=== PATIENT | male | born 1960 | race Caucasian/White ===

== ENCOUNTER 2022-01-02 19:17 | Emergency (ER) | payer OTHER, MEDICAID, SELFPAY ==
[2022-01-02 19:19] VITALS: BP 101/60; PULSE 56; RESP 18; TEMP 36.1; O2SAT 100; BMI 22.3
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
--- NOTE | 2022-01-02 22:20 | RAD_ITS ---
INDICATION: Injury/Pain EXAMINATION/TECHNIQUE: X-RAY - RIGHT XR Forearm 2 Views 2 VIEWS COMPARISON: None. FINDINGS: SOFT TISSUES: No soft tissue swelling or gas. No radiopaque foreign body. BONES/JOINTS: No acute fracture or subluxation.. Normal alignment. Preservation of the joint space.. No sclerotic or destructive changes observed. RAD/Forearm 2 Views IMPRESSION: No acute fracture or dislocation. Electronically Signed: Abner Irby MD at 23:28 EDT ,
[2022-01-02 22:43] VITALS: BP 130/74; PULSE 80; RESP 17; TEMP 36.6; O2SAT 98
== END 2022-01-02 22:46 | disposition home or self-care (01) ==
PROVIDERS: Emergency Provider Emergency Medicine; PCP Family Medicine; Visit Provider Emergency Medicine
DX: S51.811A Laceration without foreign body of right forearm, initial encounter (principal); X58.XXXA Exposure to other specified factors, initial encounter
CPT/HCPCS: 73090; 99282

== ENCOUNTER → 2022-01-19 | Outpatient (CLI) | payer MEDICAID, SELFPAY ==
[2022-01-19 12:19] LABS: Absolute Lymphocyte Count 1.63 X10^3/uL (0.83-4.51); Absolute Neutrophil Count 2.1 X10^3/uL (2.0-7.7); Basophil# 0.08 X10^3/uL; Basophil% 1.8 % (0-1); Eosinophil# 0.29 X10^3/uL; Eosinophils% 6.3 % (0-5); Hematocrit 43.3 % (40-54); Hemoglobin 14.1 g/dL (13.0-16.5); Lymphocyte # 1.63 X10^3/ul (0.83-4.51); Lymphocyte % 35.7 % (19-41); Mean Corp Hgb Conc 32.6 g/dL (32-36); Mean Corpuscular Hgb 30.6 pg (27.0-32.0); Mean Corpuscular Volume 93.9 fL (80-94); Mean Platelet Vol. 11.9 fl (6.2-12.0); Monocyte% 10.9 % (0-10); NRBC Flagged by Analyzer 0 % (0-5); Neutrophil # 2.06 X10^3/uL (2.7-7.7); Neutrophil % 45.1 % (47-70); Platelet Count 239 K/mm3 (150-450); RBC Distribution Width CV 12.9 % (11.6-14.6); RBC Distribution Width SD 44.5 fl (35.1-43.9); Red Blood Count 4.61 M/mm3 (4.6-6.2); White Blood Count 4.6 K/mm3 (4.4-11.0)
[2022-01-19 12:41] LABS: Vitamin B12 303 pg/mL (211-911)
[2022-01-19 13:37] LABS: ALB/GLOB Ratio 1.1 RATIO (0.9-2.4); AST(SGOT) 20 U/L (15-37); Alanine Aminotransfer ALT/SGPT 30 U/L (16-61); Albumin, Serum 3.9 g/dL (3.2-5.0); Alkaline Phosphatase 74 U/L (45-117); Anion Gap 9 (5-15); BUN 17 mg/dL (7-18); BUN/Creat Ratio 21.2 RATIO (10-20); Calcium,Total 9.2 mg/dL (8.5-10.1); Chloride 104 mmol/L (98-107); Cholesterol 148 mg/dL (200); EST Glomerular Filtration Rate 104 mL/min (>60); Est Glom Filt Rate - Afr Amer 126 mL/min (>60); Globulin 3.4 g/dL (2.2-4.2); Glucose 95 mg/dL (74-106); High Density Lipoprotein 47 mg/dL; PSA,Total - Annual Screen 0.53 ng/mL (0.00-4.00); Potassium 3.5 mmol/L (3.5-5.1); Protein, Total 7.3 g/dL (6.4-8.2); Sodium Level 139 mmol/L (136-145); Triglycerides 52 mg/dL; Very Low Density Lipoprotein 10 mg/dL (5-40)
[2022-01-30 14:08] LABS: Testosterone, Free 4.58 ng/dL (5.00-21.00)
[2022-01-31 17:57] LABS: Testosterone, % Free 1.52 % (1.50-4.20); Testosterone, Total 301 ng/dL (264-916)
== END | disposition home or self-care (01) ==
LOC: BFHLAB 08:53
PROVIDERS: PCP Family Medicine; Visit Provider Family Medicine
DX: Z00.00 Encounter for general adult medical examination without abnormal findings (principal); R53.83 Other fatigue; Z12.5 Encounter for screening for malignant neoplasm of prostate; E29.1 Testicular hypofunction
CPT/HCPCS: 36415; 80053; 80061; 82607; 84153; 84402; 84403; 85025; G0103

== ENCOUNTER 2022-10-25 09:30 | Day surgery (SDC) | payer MEDICAID, SELFPAY ==
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
--- NOTE | 2022-10-25 | LES_PTH ---
PATIENT: TOYIN SABA LOC: [facility] [place] U[place][id number] AGE/SX: 61/M ROOM: RE10/25/[address]: Dr. Tio Crooks MD : 1960 BED: DIS: 10/25/2022 SPEC #: [id number] RECD: 10/25/22 13:50 STATUS: TOM MIKE #: [id number] HINA: 10/25/22 00:[address]: Tio Crooks DEPT: SURGICAL PATHOLOGY RECD BY: Tobin Perkins ENTERED: 10/25/22 14:33 SP TYPE: Lesion OTHR DR: Dr. Toyin Franks, Tissues: Skin of eyelid, NOS Procedures: Frozen Section (charge) Surgery Specimen Level IV HEADER OPERATION: Excision lesion left medial upper eyelid PRE-OP DIAGNOSIS: Lesion left medial upper eyelid at the margin TISSUE SUBMITTED: Left medial upper eyelid FROZEN SECTION DIAGNOSIS Left medial upper eyelid lesion, shave biopsy: Seborrheic keratosis. Case has been reviewed in consultation with Dr. Mead who concurs with the above diagnosis. IDC:RADHA MAGANA:silverio 10/25/22 MICROSCOPIC DIAGNOSIS Left medial upper eyelid lesion, excision: Seborrheic keratosis. SJ: 10/26/2022 COMMENT Case has been reviewed in consultation with Dr. Mead who concurs with the above diagnosis. IDC:RADHA MICROSCOPIC DESCRIPTION Slides are reviewed. GROSS DESCRIPTION Received fresh for frozen section diagnosis labeled with the patient's name is a specimen designated left medial upper eyelid. The specimen consists of one irregular piece of belcher, white skin that measures 0.4 x 0.4 x 0.1 cm. The specimen is totally submitted in one cassette. / SJ: 10/25/22 TC:1 CPT:73760, 64993
[2022-10-25 10:23] VITALS: BP 100/56; PULSE 54; RESP 16; TEMP 36.8; O2SAT 98; BMI 23.0
--- NOTE | 2022-10-25 10:28 | NURSING ---
THIS RN MADE PATIENT AWARE THAT HIS SURGERY START TIME WILL BE DELAYED AND THAT THE SURGEON IS RUNNING BEHIND. PATIENT IS AWARE AND STATES HE HAS NO QUESTIONS OR CONCERNS AT THIS TIME.
[2022-10-25] MEDS: Lactated Ringers 1,000 ML 15 ML IV (10:29)
[2022-10-25] MEDS: Clindamycin 900 MG/50 ML BAG 75 MG IV (13:24)
[2022-10-25] MEDS: Lidocaine 1%/Epi 1:100 (30ml) 30 ML VIAL (14:00)
[2022-10-25] MEDS: Sodium/Calcium/Mag/Potassium 15 ML Bottle (14:00)
[2022-10-25] MEDS: Mupirocin Ointment 22gm Tube 1 APPLIC (14:00)
--- NOTE | 2022-10-25 14:13 | PCM.OPRPT ---
Problems Associated Problem List Diagnoses (1) Neoplasm of skin of eyelid: (2) Seborrheic keratosis: (3) Personal history of skin cancer: (4) Smoker: Report of Operation Date of Procedure: 10/25/22 Pre-Operative Diagnosis: 1. 0.5 cm lesion left medial upper eyelid at the margin. 2. Personal history of skin cancer. 3. Smoker. Post-Operative Diagnosis: 1. 0.5 cm seborrheic keratosis left medial upper eyelid at the margin. 2. Personal history of skin cancer. 3. Smoker. Surgery/Procedure Performed:: Intradermal excision 0.5 cm seborrheic keratosis left medial upper eyelid at the margin. Description of Surgical Findings:: 61 year old male presents for evaluation of an enlarging lesion on his left medial upper eyelid near the lacrimal canalicular punctal opening that has increased in size over the last several months and has developed irregular borders.? He denies having the lesion impact his vision.? He denies fever.? He denies trauma.? He denies any recent infection.? Denies family history of skin cancer.? He has a personal history of basal cell carcinoma.? Patient was informed of the risks and complications of the procedure including alternatives to surgery. These were discussed with the patient personally. Patient voices understanding and wishes to proceed. Some of the risks and complications were included in a form from the [employer]. Potential risks and complications included but not inclusive of bleeding, infection seroma, hematoma, bruising, swelling, loss of sensation to skin, wound breakdown, need for wound care, poor scarring, poor aesthetic outcome, intra operative cardiac or neurologic events, DVT, PE, and reaction to anesthesia. Encouraged patient to stop smoking as it may have deleterious effects on wound healing. Frozen section left medial upper eyelid at the margin - seborrheic keratosis and no carcinoma seen. Surgeon: Tio Crooks MD negotiations director: None Type of Anesthesia: General Anesthesiologist: Keshawn Ferrari MD and Henrique Vogt CRNA Specimen's removed: Lesion left medial upper eyelid at the margin to Pathology as a frozen section. Drains: None. Estimated Blood Loss (mL): 1. Description of Procedure: Patient was taken to OR in supine position and was placed under general anesthesia. The left upper eyelid and periorbital areas were prepped and draped in the usual fashion. SCD's were placed for DVT prophylaxis. Perioperative antibiotics were given intravenously. Using xylocaine with epinephrine, the lesion on the left medial upper eyelid at the margin was infiltrated. After waiting 5 minutes for the anesthetic to take effect, I proceeded with an intradermal excision of this lesion and sent it to Pathology as a frozen section for analysis to rule out carcinoma. Frozen section showed the lesion was a seborrheic keratosis and no carcinoma seen. I irrigated out the left eye because some blood had gotten in her eye with Balanced Salt Solution. Hemostasis was obtained with electrocautery and silver nitrate chemical cauterization. No need for complex eyelid reconstruction at this time. Patient tolerated the procedure well and was sent to PACU in satisfactory condition. Patient will be sent home on antibiotics and pain medication. He will keep his head elevated during the initial postoperative period. Patient will followup in a week for a wound check and for discussion of the pathology report. Grafts/Implants Used: None. Procedure Start Time: 13:41 Procedure Stop Time: 14:04 Complications None. Admit VTE Documentation VTE Present on Admission: No VTE Mechan Device Prophylaxis: SCD's VTE Pharm Prophylaxis ordered?: No Addendum Addendum: Surgery Charges CPT - 60102 ICD-10 - D49.2, L82.1, Z85.828, F17.200
[2022-10-25 14:18] VITALS: BP 100/56; BP 90/55; PULSE 61; RESP 16; TEMP 36.1; O2SAT 97
[2022-10-25 14:30] VITALS: BP 100/56; BP 80/65; PULSE 58; RESP 16; O2SAT 100
--- NOTE | 2022-10-25 14:31 | DCINST_ITS ---
Discharge Instructions Diet Discharge Diet: No restrictions Activity Discharge Activity: May Drive (when not taking narcotic pain medication.), May Shower (in 2 days.) and - (keep head elevated. ) May shower in (days): 2 May resume sexual activity in: No Restrictions Ice area for (Minutes): 5 (as needed for periorbital swelling.) Weight Bearing Status: Weight bearing as tolerated Keep extremity elevated above heart level: - (elevate head.) Dressing / Incision Call your doctor if your incision/area has: Continuous Slow Oozing, Sudden Increased Bleeding, Increased Pain/ Swelling, Increased Redness, Foul Smelling Discharge and Swelling at the incision site Call your doctor if you observe: Fever of 101 or Higher, Coldness, Increased Pain, Shortness of breath, Chest pain, Calf discomfort and Uncontrolled pain Suture Line Care: - (apply antibiotic ointment to left medial upper eyelid wound daily.) Cleanse incision/area with: - (may get surgical wound left medial upper eyelid wet in the shower in 2 days.) Follow Up Care Please Follow Up With: Tio Crooks MD When: one week. call [phone] for appt. Test Results: Test results from this visit will be discussed in further detail at your follow- up appointment, if applicable. Discharge Plan Admission Primary Reason for Your Visit: excision lesion left medial upper eyelid Attending Provider: Tio Crooks Primary Care Provider: Brian Franks Discharge Orders/Prescriptions Prescriptions: New clindamycin HCl [Cleocin HCl] 300 mg capsule 300 mg PO TID Qty: 9 0RF L.acidoph,saliva-B.bif-S.therm [Acidophilus Probiotic Blend] 175 mg capsule 1 cap PO DAILY Qty: 10 0RF oxycodone-acetaminophen [Percocet] 5-325 mg tablet 1 tab PO Q6H PRN (Reason: pain (scale score 7-10)) 3 Days Qty: 12 0RF Rx Instructions: 12 tabs (twelve) Continued multivitamin Tablet 1 tab PO DAILY mecobalamin (vitamin B12) [B12 Active] 1,000 mcg Tablet,Chewable 1,000 mcg PO DAILY Referrals / Follow Up: Brian Franks DO [Primary Care Provider] - Disposition Disposition (needs filled in before D/C Order can be placed): Home, Self Care
[2022-10-25 14:49] VITALS: BP 100/56; BP 85/54; PULSE 58; RESP 16; TEMP 36.3; O2SAT 98
[2022-10-25 15:34] VITALS: BP 100/56; BP 94/50; PULSE 60; RESP 16; TEMP 36.8; O2SAT 99
== END 2022-10-25 15:40 | disposition home or self-care (01) ==
LOC: SDC 09:32 → AC 09:35
PROVIDERS: PCP Family Medicine; Referring Provider Surgery; Visit Provider Surgery
PROC: (CPT 67840; principal; 2022-10-25 10:50)
DX: L82.1 Other seborrheic keratosis (principal); F17.200 Nicotine dependence, unspecified, uncomplicated; Z85.828 Personal history of other malignant neoplasm of skin
CPT/HCPCS: 67840; 00300; 88305; 88331; J7120; J2405

== ENCOUNTER → 2023-10-12 | Outpatient (CLI) | payer MEDICAID, SELFPAY ==
[2023-10-12 12:08] LABS: Absolute Lymphocyte Count 1.81 X10^3/uL (0.83-4.51); Absolute Neutrophil Count 2.2 X10^3/uL (2.0-7.7); Basophil# 0.07 X10^3/uL; Basophil% 1.4 % (0-1); Hematocrit 43.4 % (40-54); Hemoglobin 14.1 g/dL (13.0-16.5); Lymphocyte # 1.81 X10^3/ul (0.83-4.51); Lymphocyte % 36.4 % (19-41); Mean Corp Hgb Conc 32.5 g/dL (32-36); Mean Corpuscular Hgb 30.2 pg (27.0-32.0); Mean Corpuscular Volume 92.9 fL (80-94); Mean Platelet Vol. 12.9 fl (6.2-12.0); Monocyte# 0.59 X10^3/uL; Monocyte% 11.9 % (0-10); NRBC Flagged by Analyzer 0 % (0-5); Neutrophil # 2.19 X10^3/uL (2.7-7.7); Neutrophil % 44.1 % (47-70); Platelet Count 182 K/mm3 (150-450); RBC Distribution Width CV 13.1 % (11.6-14.6); RBC Distribution Width SD 44.6 fl (35.1-43.9); Red Blood Count 4.67 M/mm3 (4.6-6.2)
[2023-10-12 12:32] LABS: Vitamin B12 299 pg/mL (211-911)
[2023-10-12 12:46] LABS: ALB/GLOB Ratio 1.4 RATIO (0.9-2.4); AST(SGOT) 21 U/L (15-37); Alanine Aminotransfer ALT/SGPT 25 U/L (16-61); Albumin, Serum 4.1 g/dL (3.2-5.0); Alkaline Phosphatase 87 U/L (45-117); Anion Gap 7 (5-15); BUN 13 mg/dL (7-18); BUN/Creat Ratio 17.2 RATIO (10-20); Calcium,Total 9.4 mg/dL (8.5-10.1); Chloride 106 mmol/L (98-107); Cholesterol 149 mg/dL (200); Creatinine, Serum 0.76 mg/dL (0.70-1.30); EST Glomerular Filtration Rate 110 mL/min (>60); Est Glom Filt Rate - Afr Amer 133 mL/min (>60); Globulin 2.9 g/dL (2.2-4.2); Glucose 86 mg/dL (74-106); High Density Lipoprotein 52 mg/dL; PSA,Total - Annual Screen 0.84 ng/mL (0.00-4.00); Potassium 3.6 mmol/L (3.5-5.1); Sodium Level 140 mmol/L (136-145); Triglycerides 53 mg/dL; Very Low Density Lipoprotein 11 mg/dL (5-40)
== END | disposition home or self-care (01) ==
LOC: BFHLAB 10:08
PROVIDERS: PCP Family Medicine; Referring Provider Family Medicine; Visit Provider Family Medicine
DX: Z00.00 Encounter for general adult medical examination without abnormal findings (principal); Z12.5 Encounter for screening for malignant neoplasm of prostate; E53.8 Deficiency of other specified B group vitamins
CPT/HCPCS: 36415; 80053; 80061; 82607; 84153; 85025; G0103

== ENCOUNTER → 2023-12-31 | Outpatient (CLI) | payer MEDICARE, SELFPAY ==
[2024-01-05 00:07] LABS: Lyme IgG P18 Ab Absent (.); Lyme IgG P23 Ab Absent (.); Lyme IgG P28 Ab Absent (.); Lyme IgG P30 Ab Absent (.); Lyme IgG P39 Ab Absent (.); Lyme IgG P41 Ab Present (.); Lyme IgG P45 Ab Absent (.); Lyme IgG P58 Ab Absent (.); Lyme IgG P66 Ab Absent (.); Lyme IgG P93 Ab Absent (.); Lyme IgG WB Interpretation Negative (.); Lyme IgM P23 Ab Absent (.); Lyme IgM P39 Ab Absent (.); Lyme IgM P41 Ab Absent (.); Lyme IgM WB Interpretation Negative (.)
== END | disposition home or self-care (01) ==
PROVIDERS: PCP Family Medicine; Referring Provider Family Medicine; Visit Provider Family Medicine
DX: S40.862A Insect bite (nonvenomous) of left upper arm, initial encounter (principal); W57.XXXA Bitten or stung by nonvenomous insect and other nonvenomous arthropods, initial encounter
CPT/HCPCS: 36415; 86617

== ENCOUNTER → 2024-02-15 | Outpatient (CLI) | payer MEDICARE, SELFPAY ==
--- NOTE | 2024-02-15 07:50 | AAAS_ITS ---
Reason For Study: AAA Screening Aorta Measurements Aorta Doppler Measurements Proximal aorta measures2.41 x 2.57cm. in cross- Peak systolic flow velocities within the proximal sectional axis. aorta measure 126.7 cm/sec. Proximal aorta measures2.40cm. in longitudinal Peak systolic flow velocities within the mid aorta axis. measure 54.8 cm/sec. Mid aorta measures2.10 x 2.12cm. in cross- Peak systolic flow velocities within the distal sectional axis. aorta measure 83.8 cm/sec. Mid aorta measures2.10cm. in longitudinal axis. Distal aorta measures1.99 x 2.00cm. in cross- sectional axis. Distal aorta measures1.91cm. in longitudinal axis. Left Iliac Artery Left iliac artery measures 1.11 x 1.08 cm. in the cross-sectional axis. Left iliac artery measures 1.10 cm. in the longitudinal axis. Peak systolic velocity in the left iliac artery measures 69.7 cm/sec. Right Iliac Artery Right iliac artery measures 1.11 x 1.14 cm. in the cross-sectional axis. Right iliac artery measures 1.09 cm. in the longitudinal axis. Peak systolic velocity in the right iliac artery measures 95.6 cm/sec. VL/AAA Screening Interpretation Summary The dimensions of the intra-abdominal aorta appear normal, without evidence of aneurysmal dilatation. The iliac arteries also appear normal in caliber bilaterally. The i ntra-abdominal aorta and iliac arteries appear patent, demonstrating normal, pulsatile arterial flow and normal peak systolic velocities. Ordering Physician: Brian Franks Referring Physician: Brian Franks Performed By: Valentino Pride, RVT
== END | disposition home or self-care (01) ==
LOC: CVS 07:49
PROVIDERS: PCP Family Medicine; Referring Provider Family Medicine; Visit Provider Family Medicine
DX: Z13.6 Encounter for screening for cardiovascular disorders (principal); Z87.891 Personal history of nicotine dependence
CPT/HCPCS: 76706

== ENCOUNTER → 2025-02-23 | Outpatient (CLI) | payer MEDICARE, SELFPAY ==
--- OUTSIDE RECORDS SUMMARY | 2025-02-23 11:43 | XMS RPT_ITS | CCD ---
Author Organization [facility] [place] [facility] Care Team Providers Care Launderer Hand Name Role Phone Dr. Toyin Franks Primary Care Provider Dr. Toyin Franks Referring Provider [phone] Dr. Tio Crooks Attending Provider Toyin Franks Attending Unavailable Toyin Franks Primary Care Unavailable Medications Current Medications Medication Drug Class(es) Dates Sig (Normalized) Sig (Original) acetaminophen 325 mg / oxyCODONE hydrochloride 5 mg oral tablet (1 source) Opioid Agonist Start: 10-25-2022 take 1 tablet by mouth every six hours Oxycodone-Acetamin ophen (Percocet) 5-325 mg tablet Active 1 TABLET PO EVERY 6 HOURS 12 October 25, 2022 12 tabs (twelve) clindamycin 300 mg oral capsule (1 source) Lincosamide Antibacterial Start: 10-25-2022 take 1 capsule by mouth three times daily Clindamycin Hcl (Cleocin Hcl) 300 mg capsule Active 300 MG PO THREE TIMES A DAY October 25, 2022 12:00am L.Acidoph,Saliva-B. Bif-S.Therm (Acidophilus Probiotic Blend) 175 mg capsule (1 source) Start: 10-25-2022 take 1 capsule by mouth once daily L.Acidoph,Saliva-B .Bif-S.Therm (Acidophilus Probiotic Blend) 175 mg capsule Active 1 CAP PO DAILY October 25, 2022 12:00am mecobalamin 1 mg chewable tablet (1 source) Start: 03-20-2022 take 1 tablet by mouth once daily Mecobalamin (Vitamin B12) (B12 Active) 1,000 mcg Tablet,Chewable Active 1000 MCG PO DAILY March 20, 2022 1:00am Multivitamin preparation (1 source) Start: 03-20-2022 take 1 tablet by mouth once daily Multivitamin Active 1 TABLET PO DAILY March 20, 2022 1:00am Problems Problem Classification Problem Date Documented Da te Episodic/Chronic Neoplasms of unspecified nature or uncertain behavior (2 sources) Neoplasm of skin of eyelid; Translations: [Neoplasm of unspecified behavior of bone, soft tissue, and skin] 02-09-2022 Episodic Open wounds of extremities (3 sources) Tear of skin; Translations: [Laceration without foreign body of right forearm, initial encounter] 01-10-2022 Episodic Other nervous system disorders (1 source) Acute postoperative pain; Translations: [Other acute postprocedural pain] 10-25-2022 Episodic Other non-epithelial cancer of skin (2 sources) History of malignant neoplasm of skin; Translations: [Personal history of other malignant neoplasm of skin] 02-09-2022 Episodic Residual codes; unclassified (1 source) History finding; Translations: [Other specified health status] 03-20-2022 Episodic Substance-related disorders (2 sources) Smoker; Translations: [Nicotine dependence, unspecified, uncomplicated] 10-09-2022 Chronic Superficial injury; contusion (3 sources) Contusion of forearm; Translations: [Contusion of right forearm, initial encounter] 01-10-2022 Episodic Results Test Name Value Interpretation Reference Range Facil ity Absolute lymphocyte counton 01-19-2022 Lymphocytes Auto (Unsp spec) [#/Vol] 1.63 10*3/uL 0.83-4.51 [facility] Work Phone: Basophil percentageon 2021 Basophils/100 WBC (Bld) 1.8 % 0-1 [facility] Work Phone: Bilirubin [Mass/Vol] 0.70 mg/dL 0.20-1.00 [facility] Work Phone: Comment on above: For patients on eltr ombopag therapy, use of Dimension [place] TBIL is not recommended. Chloride [Moles/Vol] 104 mmol/L 98-107 [facility] Work Phone: Cholesterol [Mass/Vol] 148 mg/dL <200 [facility] Work Phone: Comment on above: <200 mg/dL Desirable 200-240 mg/dL Borderline >240 mg/dL High Risk Eosinophils/100 WBC (Bld) 6.3 % 0-5 [facility] Work Phone: Glucose [Mass/Vol] 95 mg/dL 74-106 [facility] Work Phone: Neutrophils (Bld) [#/Vol] 2.1 10*3/uL 2.0-7.7 [facility] Work Phone: Neutrophils/100 WBC (Bld) 45.1 % 47-70 [facility] Work Phone: Potassium [Moles/Vol] 3.5 mmol/L 3.5-5.1 [facility] Work Phone: Protein [Mass/Vol] 7.3 g/dL 6.4-8.2 [facility] Work Phone: Sodium [Moles/Vol] 139 mmol/L 136-145 [facility] Work Phone: Triglyceride [Mass/Vol] 52 mg/dL <199 [facility] Work Phone: Comment on above: The drugs N-Acetylcy steine and Metamizole may falsely depress this assay.Serum Triglycerides Reference Interval Normal <150 mg/dL Borderline high 150 - 199 mg/dL High 200 - 499 mg/dL Very High > or = 500 mg/dL WBC (Bld) [#/Vol] 4.6 10*3/uL 4.4-11.0 [facility] Work Phone: Blood erythrocytes count (nu mber/volume)on 01-19-2022 RBC (Bld) [#/Vol] 4.61 10*6/uL 4.6-6.2 [facility] Work Phone: Blood hemoglobin measurement (mass/volume)on 01-19-2022 Hemoglobin (Bld) [Mass/Vol] 14.1 g/dL 13.0-16.5 [facility] Work Phone: Blood lymphocytes/100 leukoc yteson 10-06-2022 Lymphocytes/100 WBC (Bld) 35.7 % 19-41 [facility] Work Phone: Blood monocytes/100 leukocyt eson 01-19-2022 Monocytes/100 WBC (Bld) 10.9 % 0-10 [facility] Work Phone: Blood platelet mean volumeon 01-19-2022 Platelet mean volume (Bld) [Entitic vol] 11.9 fL 6.2-12.0 [facility] Work Phone: Determination of erythrocyte mean corpuscular volume (MCV)on 01-19-2022 MCV (RBC) [Entitic vol] 93.9 fL 80-94 [facility] Work Phone: Hematocrit Auto (Bld) [Volum e fraction]on 01-19-2022 Hematocrit (Bld) [Volume fraction] 43.3 % 40-54 [facility] Work Phone: Laboratory - Chemistry and C hemistry - challengeon 01-19-2022 ALP [Catalytic activity/Vol] 74 U/L 45-117 [facility] Work Phone: ALT [Catalytic activity/Vol] 30 U/L 16-61 [facility] Work Phone: CO2 [Moles/Vol] 26.0 mmol/L 21.0-32.0 [facility] Work Phone: Cobalamin (Vitamin B12) [Mass/Vol] 303 pg/mL 211-911 [facility] Work Phone: Globulin (S) [Mass/Vol] 3.4 g/dL 2.2-4.2 [facility] Work Phone: Urea nitrogen/Creatinine [Mass ratio] 21.2 mg/mg 10-20 [facility] Work Phone: Laboratory - Hematology and Cell countson 01-19-2022 Erythrocyte distribution width (RBC) [Entitic vol] 44.5 fL 35.1-43.9 [facility] Work Phone: Erythrocyte distribution width (RBC) [Ratio] 12.9 % 11.6-14.6 [facility] Work Phone: Immature granulocytes/100 WBC (Bld) 0.200 % 0.0-0.9 [facility] Work Phone: Comment on above: IG% - Immature Granu locytes (promyelocytes, myelocytes and metamyelocytes) > 1% indicates that a LEFT SHIFT is Present. MCH (RBC) [Entitic mass] 30.6 pg 27.0-32.0 [facility] Work Phone: Nucleated RBC/100 WBC (Bld) [Ratio] 0 % 0-5 [facility] Work Phone: MCHC Auto (RBC) [Mass/Vol]on 01-19-2022 MCHC (RBC) [Mass/Vol] 32.6 g/dL 32-36 [facility] Work Phone: No Panel Informationon 01-19 Estimated GFR (MDRD) Amer 126 mL/min >60 [facility] Work Phone: Comment on above: GFR Calc Estimated GFR (MDRD) Non-Af Amer 104 mL/min >60 [facility] Work Phone: Comment on above: Non- GFR Calc Prostate Specific Antigen Screen 0.53 ng/mL 0.00-4.00 [facility] Work Phone: Comment on above: This test was perfor med using the TPSA assay method [facility]. Values obtained with differentassay methods cannot be used interchangably.When changing PSA assays in the course of monitoring apatient, additional sequential testing should be carriedout to confirm baseline values. Platelets bldon 01-19-2022 Platelets (Bld) [#/Vol] 239 10*3/uL 150-450 [facility] Work Phone: Serum or plasma albumin esteban urement (mass/volume)on 01-19-2022 Albumin [Mass/Vol] 3.9 g/dL 3.2-5.0 [facility] Work Phone: Serum or plasma albumin/glob ulin mass ratioon 01-19-2022 Albumin/Globulin [Mass ratio] 1.1 {ratio} 0.9-2.4 [facility] Work Phone: Serum or plasma calcium esteban urement (mass/volume)on 01-19-2022 Calcium [Mass/Vol] 9.2 mg/dL 8.5-10.1 [facility] Work Phone: Serum or plasma cholesterol in HDL measurement (mass/volume)on 01-19-2022 Cholesterol in HDL [Mass/Vol] 47 mg/dL >40 [facility] Work Phone: Comment on above: The drugs N-Acetylcy steine and Metamizole may falsely depress this assay. Reference Range HDL <40 mg/dL Low HDL Cholesterol HDL >or= 60 mg/dL High HDL Cholesterol Serum or plasma cholesterol in VLDL measurement (mass/volume)on 01-19-2022 Cholesterol in VLDL [Mass/Vol] 10 mg/dL 5-40 [facility] Work Phone: Serum or plasma creatinine m easurement (mass/volume)on 01-19-2022 Creatinine [Mass/Vol] 0.80 mg/dL 0.70-1.30 [facility] Work Phone: Comment on above: The validity of the calculated GFR & GFRAA in patients over 70 years has not been determined. Clinical correlation is essential. Serum or plasma low density lipoprotein (LDL) cholesterol measurement (mass/volume)on 01-19-2022 Cholesterol in LDL [Mass/Vol] 91 mg/dL 0-130 [facility] Work Phone: Serum or plasma urea nitroge n measurement (mass/volume)on 01-19-2022 Urea nitrogen [Mass/Vol] 17 mg/dL 7-18 [facility] Work Phone: Thin prep Papanicolaou smear with manual screeningon 01-19-2022 Thin prep Papanicolaou smear with manual screening 20 U/L 15-37 [facility] Work Phone: Thin prep Papanicolaou smear with manual screening 9 5-15 [facility] Work Phone: NURSING PROGon 12-17-2020 NURSING PROG HNO ID: [id number] Author: Nyla Posada RN Service: ? Author Type: Registered Nurse Type: Nursing Progress Note Filed: 12/17/2020 1:01 PM Note Text: [facility] PRE-OP NURSING HAND OFF NOTE SBAR Hand off given to Ana Maria Sykes RN. Hand off was communicated verbally and at the patient's bedside and all questions were answered. Nyla Posada RN [facility] HISTORY PHYSICALon HISTORY PHYSICAL HNO ID: [id number] Author: Chapis Barros MD Service: ? Author Type: Physician Type: HANDP Filed: 12/16/2020 7:43 PM Note Text: HISTORY AND PHYSICAL ? Toyin Nugent 1960 ? REFERRING PHYSICIAN: Toyin Franks, DO ? CHIEF COMPLAINT: Consult (colonoscopy consultation) ? HPI: The patient is a 60 year old male referred for endoscopy. Toyin notes no colon complaints. Patient denies any change in bowel habits, weight changes, blood in stools, black tarry stools or abdominal pain. NOTES family history of colon cancer-mother. Patient unsure of mother's exact age at diagnosis but stated he believes she was diagnosed fairly young and then passed around age 68 after battling with this for years and recurrence. The patient notes no upper GI complaints. ? Toyin has undergone prior endoscopy. Last colonoscopy 11/10/13 at [facility] by Dr. Barros with no concerning findings. ? Patient is now referred by PCP Dr. Franks for repeat colonoscopy due to family history. Notes from PCP office reviewed. ? Patient denies chest pain, shortness of breath or recent hospitalizations. Denies problems with sedation in the past. ? PAST MEDICAL HISTORY PAST MEDICAL HISTORY Diagnosis Date - Leg fracture, left 2006 - Testicular torsion ? ? Left ? ? PAST SURGICAL HISTORY PAST SURGICAL HISTORY Procedure Laterality Date - TESTICLE SURGERY HX Left 1972 ? testicle removed - TONSILLECTOMY HX ? CURRENT MEDICATIONS No current outpatient medications on file. ? No current facility-administere d medications for this visit. ? ? ALLERGIES: Patient has no known allergies. ? PERSONAL HISTORY: SOCIAL HISTORY Social History ? Tobacco Use - Smoking status: Never Smoker - Smokeless tobacco: Current User ? ? Types: Snuff Vaping Use - Vaping Use: Never used Substance Use Topics - Alcohol use: Yes ? ? Comment: social - Drug use: Never ? FAMILY HISTORY: FAMILY HISTORY FAMILY HISTORY Problem Relation Age of Onset - Colon Cancer Mother ? ? ? REVIEW OF SYMPTOMS: The review of systems data was entered by the nurse and reviewed by me ? Nursing Notes: Stefanie Viveros RN 11/24/2020 8:47 AM Signed REVIEW OF SYSTEMS: General: The patient denies fatigue, denies weight loss, denies weight gain, denies feeling hot, and denies feelings of cold. Eyes: The patient denies glaucoma, denies eye injury/surgery, does not wear glasses or contacts. Ear/Nose/Throat: The patient denies allergies, denies hayfever, denies ear infections, and denies bloody noses. Cardiovascular: The patient denies chest pain, denies heart disease, denies high blood pressure,denies cardiac stent, denies prior heart attack, denies irregular heart beat, denies high cholesterol, denies poor circulation, denies heart failure, other cardiac issues, denies claudication, denies cold feet, denies peripheral arterial stent. Respiratory: The patient denies tuberculosis, denies pneumonia, denies frequent cough, denies pulmonary embolism, denies shortness of breath, and denies coughing up blood. Gastrointestinal: The patient denies difficulty swallowing, denies acid reflux, denies ulcers, denies vomiting, denies jaundice/hepatitis, denies gallbladder problems, denies black or tarry stools, denies hemorrhoids, denies bleeding from rectum, denies diverticulitis, denies constipation, denies diarrhea, denies loss of stool control, and denies hernias. Kidney/Bladder: The patient denies kidney stones, denies urine infections, and denies bloody urine. Skin: The patient NOTES a history of skin cancer, denies bleeding/changing moles, and denies a history of skin rash. Neurologic: The patient denies a history of epilepsy/convulsions , denies headaches, denies head/spinal injuries, and denies stroke/TIA. Psychiatric: The patient denies psychiatric medications, denies depression, and denies voices, denies substance abuse. Endocrine: The patient denies thyroid disorders, denies diabetes, and denies hormonal problems. Hematologic: The patient denies a history of bruising, denies bleeding, and denies anemia, denies blood clots. Infections: The patient denies a history of measles and mumps, denies rheumatic fever, and denies sexually transmitted diseases. Musculoskeletal: The patient denies back pain/injury, denies back problems, denies sciatica, denies knee/foot trouble, denies arthritis, or denies gout. ? ? When was patient's last Mammogram screening? N/A ? Last Colonoscopy: 11/10/2013 ? Stefanie Viveros RN I have confirmed and edited as necessary, the PFSH and ROS obtained by others. Zachary Henry PA-C ? PHYSICAL EXAMINATION: ? General: The patient is 60 year old male, well nourished, well hydrated in no acute distress. The patient is oriented to time, place, and person. ? VITALS: Blood pressure 128/78, pulse (!) 121, temperature 36.4 ?C (97.5 ? (more content not included)... Normal [facility] HOSPon 12-16-2020 HOSP Patient:Toyin Nugent MRN: Height:6' 0(1.829 m) Weight:187 lb 3.2 oz (84.913 kg) Outpatient Medications as of 12/17/20: Patient has no current outpatient medications. Admission/Clinic Administered Medications as of 12/17/20: lactated ringers iv infusion fentaNYL 50 mcg/mL 25-100 mcg injection (SUBLIMAZE) midazolam 1-5 mg injection (VERSED) diphenhydrAMINE 12.5-50 mg injection (BENADRYL) simethicone 20-40 mg oral drops (MYLICON) Problem List: No problem list on file for this patient. Allergies: No Known Allergies Date Verified:12/17/20 Lab Values Lab Value Units Date High Low POTA* 3.8 mmol/L 11/23/2020 5.1 3.7 JUANA* 48.1 % 11/23/2020 51.0 39.0 Progress Notes ([facility]): Guido Prince 12/16/2020 8:30 AM Addendum 12-16-[address] Barros [facility] SURGICAL PHONE NOTE Date of Procedure/Surgery: 12-17-2020 Procedure/Surgery Type: COLONOSCOPY ? SEDATION:Conscious Sedation Location of Planned Procedure/Surgery: ? [facility] Surgery/Procedure Ordered: Yes COVID Testing Required: (FOR MAC CASES AND ASC PROCEDURES OTHER THAN COLON AND EGD): No Pre-Op Clearance Needed: No Prep Ordered:Yes: DEANNE Prep Instructions given:Yes: Given in the office. Referral Completed:PAVE to complete. Patient Diabetic:No. Medication Considerations: Patient on blood Thinners: No Any other meds that need to be held: No Pacemaker or Defibrillator:No Patient/Family Informed of above information and given directions regarding location/arrival: No Transportation Considerations: No Other Important Information: No Any physical limitations: No Any cognitive limitations: No Supervisor Sterile Processing/Translat or required: No Communication Limitations: No Zachary Henry PA-C 11/24/2020 12:29 PM Signed Please ask patient pharmacy for bowel prep, thanks Zachary Henry PA-C 11/24/2020 4:14 PM Signed Rx sent Progress Notes ([facility]): Stefanie Viveros RN 11/24/2020 8:47 AM Signed REVIEW OF SYSTEMS: General: The patient denies fatigue, denies weight loss, denies weight gain, denies feeling hot, and denies feelings of cold. Eyes: The patient denies glaucoma, denies eye injury/surgery, does not wear glasses or contacts. Ear/Nose/Throat: The patient denies allergies, denies hayfever, denies ear infections, and denies bloody noses. Cardiovascular: The patient denies chest pain, denies heart disease, denies high blood pressure,denies cardiac stent, denies prior heart attack, denies irregular heart beat, denies high cholesterol, denies poor circulation, denies heart failure, other cardiac issues, denies claudication, denies cold feet, denies peripheral arterial stent. Respiratory: The patient denies tuberculosis, denies pneumonia, denies frequent cough, denies pulmonary embolism, denies shortness of breath, and denies coughing up blood. Gastrointestinal: The patient denies difficulty swallowing, denies acid reflux, denies ulcers, denies vomiting, denies jaundice/hepatitis, denies gallbladder problems, denies black or tarry stools, denies hemorrhoids, denies bleeding from rectum, denies diverticulitis, denies constipation, denies diarrhea, denies loss of stool control, and denies hernias. Kidney/Bladder: The patient denies kidney stones, denies urine infections, and denies bloody urine. Skin: The patient NOTES a history of skin cancer, denies bleeding/changing moles, and denies a history of skin rash. Neurologic: The patient denies a history of epilepsy/convulsions , denies headaches, denies head/spinal injuries, and denies stroke/TIA. Psychiatric: The patient denies psychiatric medications, denies depression, and denies voices, denies substance abuse. Endocrine: The patient denies thyroid disorders, denies diabetes, and denies hormonal problems. Hematologic: The patient denies a history of bruising, denies bleeding, and denies anemia, denies blood clots. Infections: The patient denies a history of measles and mumps, denies rheumatic fever, and denies sexually transmitted diseases. Musculoskeletal: The patient denies back pain/injury, denies back problems, denies sciatica, denies knee/foot trouble, denies arthritis, or denies gout. When was patient's last Mammogram screening? N/A Last Colonoscopy: 11/10/2013 JESUS Quinones PA-C 11/24/2020 12:41 PM Signed HISTORY AND PHYSICAL Toyin Nugent 1960 REFERRING PHYSICIAN: Toyin Franks DO CHIEF COMPLAINT: Consult (colonoscopy consultation) HPI: The patient is a 60 year old male referred for endoscopy. Toyin notes no colon complaints. Patient denies any change in bowel habits, weight changes, blood in stools, black tarry stools or abdominal pain. NOTES family history of colon cancer-mother. Patient unsure of mother's exact age at diagnosis but stated he believes she was diagnosed fairly young and then passed around age 70 after battling with this for years and recurrence. The patient notes no upper GI (more content not included)... Normal [facility] CNOVon 11-24-2020 CNOV Office Visit ([facility]) TOYIN NUGENT ([id number]) 1960 M Date Time Provider Department 11/24/20 8:30 AM ZACHARY HENRY During your visit today, we recorded the following information about you: Temperature Pulse Blood pressure Weight 97.5 degrees 121/minute 128/78 84.9 kg Height 1.829 m Stefanie Viveros RN 11/24/2020 8:47 AM Signed REVIEW OF SYSTEMS: General: The patient denies fatigue, denies weight loss, denies weight gain, denies feeling hot, and denies feelings of cold. Eyes: The patient denies glaucoma, denies eye injury/surgery, does not wear glasses or contacts. Ear/Nose/Throat: The patient denies allergies, denies hayfever, denies ear infections, and denies bloody noses. Cardiovascular: The patient denies chest pain, denies heart disease, denies high blood pressure,denies cardiac stent, denies prior heart attack, denies irregular heart beat, denies high cholesterol, denies poor circulation, denies heart failure, other cardiac issues, denies claudication, denies cold feet, denies peripheral arterial stent. Respiratory: The patient denies tuberculosis, denies pneumonia, denies frequent cough, denies pulmonary embolism, denies shortness of breath, and denies coughing up blood. Gastrointestinal: The patient denies difficulty swallowing, denies acid reflux, denies ulcers, denies vomiting, denies jaundice/hepatitis, denies gallbladder problems, denies black or tarry stools, denies hemorrhoids, denies bleeding from rectum, denies diverticulitis, denies constipation, denies diarrhea, denies loss of stool control, and denies hernias. Kidney/Bladder: The patient denies kidney stones, denies urine infections, and denies bloody urine. Skin: The patient NOTES a history of skin cancer, denies bleeding/changing moles, and denies a history of skin rash. Neurologic: The patient denies a history of epilepsy/convulsions , denies headaches, denies head/spinal injuries, and denies stroke/TIA. Psychiatric: The patient denies psychiatric medications, denies depression, and denies voices, denies substance abuse. Endocrine: The patient denies thyroid disorders, denies diabetes, and denies hormonal problems. Hematologic: The patient denies a history of bruising, denies bleeding, and denies anemia, denies blood clots. Infections: The patient denies a history of measles and mumps, denies rheumatic fever, and denies sexually transmitted diseases. Musculoskeletal: The patient denies back pain/injury, denies back problems, denies sciatica, denies knee/foot trouble, denies arthritis, or denies gout. When was patient's last Mammogram screening? N/A Last Colonoscopy: 11/10/2013 JESUS Quinones PA-C 11/24/2020 12:41 PM Signed HISTORY AND PHYSICAL Toyin Guzman Raffi 1960 REFERRING PHYSICIAN: Toyin Franks DO CHIEF COMPLAINT: Consult (colonoscopy consultation) HPI: The patient is a 60 year old male referred for endoscopy. Toyin notes no colon complaints. Patient denies any change in bowel habits, weight changes, blood in stools, black tarry stools or abdominal pain. NOTES family history of colon cancer-mother. Patient unsure of mother's exact age at diagnosis but stated he believes she was diagnosed fairly young and then passed around age 68 after battling with this for years and recurrence. The patient notes no upper GI complaints. Toyin has undergone prior endoscopy. Last colonoscopy 11/10/13 at [facility] by Dr. Barros with no concerning findings. Patient is now referred by PCP Dr. Franks for repeat colonoscopy due to family history. Notes from PCP office reviewed. Patient denies chest pain, shortness of breath or recent hospitalizations. Denies problems with sedation in the past. PAST MEDICAL HISTORY Diagnosis Date - Leg fracture, left 2006 - Testicular torsion Left PAST SURGICAL HISTORY Procedure Laterality Date - TESTICLE SURGERY HX Left 1973 testicle removed - TONSILLECTOMY HX No current outpatient medications on file. No current facility-administere d medications for this visit. ALLERGIES: Patient has no known allergies. PERSONAL HISTORY: Social History Tobacco Use - Smoking status: Never Smoker - Smokeless tobacco: Current User Types: Snuff Vaping Use - Vaping Use: Never used Substance Use Topics - Alcohol use: Yes Comment: social - Drug use: Never FAMILY HISTORY: FAMILY HISTORY Problem Relation Age of Onset - Colon Cancer Mother REVIEW OF SYMPTOMS: The review of systems data was entered by the nurse and reviewed by me Nursing Notes: Stefanie Viveros RN 11/24/2020 8:47 AM Signed REVIEW OF SYSTEMS: General: The patient denies fatigue, denies weight loss, denies weight gain, denies feeling hot, and denies feelings of cold. Eyes: The patient denies glaucoma, denies eye injury/surgery, does not wear glasses or contac (more content not included)... [facility] Tele[facility] ([employer]) TOYIN NUGENT ([id number]) 1960 M Date Time Provider Department 11/24/20 CHAPIS [id number] During your visit today, we recorded the following information about you: Guido Prince 12/16/2020 8:30 AM Addendum 12-16-[address] Barros [facility] SURGICAL PHONE NOTE Date of Procedure/Surgery: 12-17-2020 Procedure/Surgery Type: COLONOSCOPY ? SEDATION:Conscious Sedation Location of Planned Procedure/Surgery: ? [facility] Surgery/Procedure Ordered: Yes COVID Testing Required: (FOR MAC CASES AND ASC PROCEDURES OTHER THAN COLON AND EGD): No Pre-Op Clearance Needed: No Prep Ordered:Yes: DEANNE Prep Instructions given:Yes: Given in the office. Referral Completed:PAVE to complete. Patient Diabetic:No. Medication Considerations: Patient on blood Thinners: No Any other meds that need to be held: No Pacemaker or Defibrillator:No Patient/Family Informed of above information and given directions regarding location/arrival: No Transportation Considerations: No Other Important Information: No Any physical limitations: No Any cognitive limitations: No Supervisor Sterile Processing/Translat or required: No Communication Limitations: No Zachary Henry PA-C 11/24/2020 12:29 PM Signed Please ask patient pharmacy for bowel prep, thanks Zachary Henry PA-C 11/24/2020 4:14 PM Signed Rx sent Allergies As of Date: 11/24/2020 (No Known Allergies) Date Reviewed: 11/24/2020 Reviewed by: Stefanie Viveros RN - Fully Assessed Reason for Visit: 12-17-2020 Colon [facility] [Other] Order(s):[] peg 3350-Electrolytes (GOLYTELY) 236-22.74-6.74 -5.86 gram suspensionTake 4,000 mL by mouth one time only for 1 dose.Disp: 1 BottleRfl: 0 Problem List As Of Date: 11/24/2020 (None) Prescriptions ordered this encounter Disp Refills Start End PEG 3350-ELECTROLYTES 236 GRAM-22.74* 1 Jr* 0 11/24/2020 11/24/2020 Route: ORAL Sig: Take 4,000 mL by mouth one time only for 1 dose. Encounter Status:Closed by GUIDO PRINCE on 12/17/20 Normal [facility] Vital Signs Date Time Vital Sign Value Performing Clinician Faci lity 10-25-2022 15:34-0400 Body temperature 98.3 [degF] Dr. Toyin Franks Work Phone: [facility] 10-25-2022 15:34-0400 Diastolic blood pressure 50 mm[Hg] Dr. Toyin Franks Work Phone: [facility] 10-25-2022 15:34-0400 Heart rate 60 /min Dr. Toyin Franks Work Phone: [facility] 10-25-2022 15:34-0400 Respiratory rate 16 /min Dr. Toyin Franks Work Phone: [facility] 10-25-2022 15:34-0400 SaO2% (BldA) [Mass fraction] 99 % Dr. Toiyn Franks Work Phone: [facility] 10-25-2022 15:34-0400 Systolic blood pressure 94 mm[Hg] Dr. Toyin Franks Work Phone: [facility] 10-25-2022 10:23-0400 Body height 182.[address] Toyin Franks Work Phone: [facility] 10-25-2022 10:23-0400 Body mass index (BMI) [Ratio] 23 kg/m2 Dr. Toyin Franks Work Phone: [facility] 10-25-2022 10:23-0400 Body weight [address] Toyin Franks Work Phone: [facility] 10-09-2022 09:01-0400 Body mass index (BMI) [Ratio] 23.9 kg/m2 Dr. Toyin Franks Work Phone: [facility] 10-09-2022 09:01-0400 Body temperature 97.8 [degF] Dr. Toyin Franks Work Phone: [facility] 10-09-2022 09:01-0400 Body weight 77.[address] Toyin Franks Work Phone: [facility] 10-09-2022 09:01-0400 Diastolic blood pressure 68 mm[Hg] Dr. Toyin Franks Work Phone: [facility] 10-09-2022 09:01-0400 Heart rate 70 /min Dr. Toyin Franks Work Phone: [facility] 10-09-2022 09:01-0400 Respiratory rate 18 /min Dr. Toyin Franks Work Phone: [facility] 10-09-2022 09:01-0400 SaO2% (BldA) [Mass fraction] 98 % Dr. Toyin Franks Work Phone: [facility] 10-09-2022 09:01-0400 Systolic blood pressure 104 mm[Hg] Dr. Toyin Franks Work Phone: [facility] 01-02-2022 22:43-0400 Body temperature 98 [degF] [facility] Work Phone: 01-02-2022 22:43-0400 Diastolic blood pressure 74 mm[Hg] [facility] Work Phone: 01-02-2022 22:43-0400 Heart rate 80 /min [facility] Work Phone: 01-02-2022 22:43-0400 Respiratory rate 17 /min [facility] Work Phone: 01-02-2022 22:43-0400 SaO2% (BldA) [Mass fraction] 98 % [facility] Work Phone: 01-02-2022 22:43-0400 Systolic blood pressure 130 mm[Hg] [facility] Work Phone: 01-02-2022 19:19-0400 Body height 180.34 cm [facility] Work Phone: 01-02-2022 19:19-0400 Body mass index (BMI) [Ratio] 22.3 kg/m2 [facility] Work Phone: 01-02-2022 19:19-0400 Body weight 72.57 kg [facility] Work Phone: Encounters Encounter Date Encounter Type Care Provider Facility Start: 02-20-2025 ambulatory Toyin Franks Facility: [facility] Start: 10-25-2022 End: 10-25-2022 Admission to same day surgery center Dr. Toyin Franks Work Phone: [facility] Start: 10-25-2022 End: 10-25-[address] Toyin Franks Work Phone: [facility] Work Phone: Start: 10-09-2022 End: 10-09-[address] Toyin Franks Work Phone: [facility] Work Phone: Start: 01-19-2022 End: 01-19-2022 ambulatory [facility] Work Phone: Start: 01-19-2022 End: 01-19-2022 Patient encounter procedure [facility] Start: 01-02-2022 End: 01-02-2022 Emergency department patient visit [facility]Emergency Department Procedures Date Procedure Procedure Detail Performing Clinician Start: 10-25-[address] Toyin chin Work Phone: Start: 01-02-2022 X-ray of radius and ulna Plan of Treatment Date Care Activity Detail Author Start: 10-25-2022 Patient discharge [facility] Start: 01-02-2022 X-ray of radius and ulna Forearm 2 V iews [facility] Work Phone: Start: 01-02-2022 XR Radius and Ulna 2 Views [facility] Work Phone: Patient Education ED Contusion, Upper Extremity ED Skin Avulsion [facility] Work Phone: Patient referral [facility] Work Phone: Testosterone Free [Mass/volume] in Serum or Plasma [facility] Work Phone: Testosterone measurement [facility] Work Phone: Payers Date Payer Category Payer Self-pay 2025 Unknown [id number] 2015 Unknown GIGI [id number] Unknown [facility] [id number] Unknown [id number] [id number] Unknown [facility] [id number] Unknown [id number] Social History Date Type Detail Facility Start: 01-02-2022 End: 10-19-2022 Tobacco smoking status NHIS Unknown if ever smoked [facility] Start: 1960 Sex Assigned At Male [facility] Goals Date Patient Goal Desired Activity /State Mental Status Date Assessment Result Facility 10-25-2022 Cognitive function Voice/Name [facility] Work Phone: Clinical Note 12-17-2020 Note Date & Type Note Facility 12-17-2020 Note HNO ID: [id number] Author: Beverly Serrato RN Service: ? Author Type: Registered Nurse Type: Nursing Progress Note Filed: 12/17/2020 1:06 PM Note Text: Abdomen soft non-distended. [facility] Progress note 11-24-2020 Note Date & Type Note Facility 11-24-2020 Note HNO ID: [id number] Author: Zachary Henry PA-C Service: ? Author Type: Physician Independent Contractor Type: Progress Notes Filed: 11/24/2020 12:41 PM Note Text: HISTORY AND PHYSICAL Toyin Guzman Raffi 1960 REFERRING PHYSICIAN: Toyin Franks DO CHIEF COMPLAINT: Consult (colonoscopy consultation) HPI: The patient is a 60 year old male referred for endoscopy. Toyin notes no colon complaints. Patient denies any change in bowel habits, weight changes, blood in stools, black tarry stools or abdominal pain. NOTES family history of colon cancer-mother. Patient unsure of mother's exact age at diagnosis but stated he believes she was diagnosed fairly young and then passed around age 70 after battling with this for years and recurrence. The patient notes no upper GI complaints. Toyin has undergone prior endoscopy. Last colonoscopy 11/10/13 at [facility] by Dr. Barros with no concerning findings. Patient is now referred by PCP Dr. Franks for repeat colonoscopy due to family history. Notes from PCP office reviewed. Patient denies chest pain, shortness of breath or recent hospitalizations. Denies problems with sedation in the past. PAST MEDICAL HISTORY Diagnosis Date - Leg fracture, left 2007 - Testicular torsion Left PAST SURGICAL HISTORY Procedure Laterality Date - TESTICLE SURGERY HX Left 1973 testicle removed - TONSILLECTOMY HX No current outpatient medications on file. No current facility-administered medications for this visit. ALLERGIES: Patient has no known allergies. PERSONAL HISTORY: Social History Tobacco Use - Smoking status: Never Smoker - Smokeless tobacco: Current User Types: Snuff Vaping Use - Vaping Use: Never used Substance Use Topics - Alcohol use: Yes Comment: social - Drug use: Never FAMILY HISTORY: FAMILY HISTORY Problem Relation Age of Onset - Colon Cancer Mother REVIEW OF SYMPTOMS: The review of systems data was entered by the nurse and reviewed by me Nursing Notes: Stefanie Viveros RN 11/24/2020 8:47 AM Signed REVIEW OF SYSTEMS: General: The patient denies fatigue, denies weight loss, denies weight gain, denies feeling hot, and denies feelings of cold. Eyes: The patient denies glaucoma, denies eye injury/surgery, does not wear glasses or contacts. Ear/Nose/Throat: The patient denies allergies, denies hayfever, denies ear infections, and denies bloody noses. Cardiovascular: The patient denies chest pain, denies heart disease, denies high blood pressure,denies cardiac stent, denies prior heart attack, denies irregular heart beat, denies high cholesterol, denies poor circulation, denies heart failure, other cardiac issues, denies claudication, denies cold feet, denies peripheral arterial stent. Respiratory: The patient denies tuberculosis, denies pneumonia, denies frequent cough, denies pulmonary embolism, denies shortness of breath, and denies coughing up blood. Gastrointestinal: The patient denies difficulty swallowing, denies acid reflux, denies ulcers, denies vomiting, denies jaundice/hepatitis, denies gallbladder problems, denies black or tarry stools, denies hemorrhoids, denies bleeding from rectum, denies diverticulitis, denies constipation, denies diarrhea, denies loss of stool control, and denies hernias. Kidney/Bladder: The patient denies kidney stones, denies urine infections, and denies bloody urine. Skin: The patient NOTES a history of skin cancer, denies bleeding/changing moles, and denies a history of skin rash. Neurologic: The patient denies a history of epilepsy/convulsions, denies headaches, denies head/spinal injuries, and denies stroke/TIA. Psychiatric: The patient denies psychiatric medications, denies depression, and denies voices, denies substance abuse. Endocrine: The patient denies thyroid disorders, denies diabetes, and denies hormonal problems. Hematologic: The patient denies a history of bruising, denies bleeding, and denies anemia, denies blood clots. Infections: The patient denies a history of measles and mumps, denies rheumatic fever, and denies sexually transmitted diseases. Musculoskeletal: The patient denies back pain/injury, denies back problems, denies sciatica, denies knee/foot trouble, denies arthritis, or denies gout. When was patient's last Mammogram screening? N/A Last Colonoscopy: 11/10/2013 Stefanie Viveros RN I have confirmed and edited as necessary, the PFSH and ROS obtained by others. Zachary Henry PA-C PHYSICAL EXAMINATION: General: The patient is 60 year old male, well nourished, well hydrated in no acute distress. The patient is oriented to time, place, and person. VITALS: Blood pressure 128/78, pulse (!) 121, temperature 36.4 ?C (97.5 ?F), height 182.9 cm (6'), weight 84.9 kg (187 lb 3.2 oz), SpO2 100 %. Body mass index is 25.39 kg/m?. HEENT: Normal cephalic, ataumatic, pupils are equally round, sclera are anicteric, mucous membranes are moist, or (more content not included)... [facility] Discharge summary Note Date & Type Note Facility Discharge summary Note Date/Time October 25, 2022 2:37 pm [facility] Medical Records Department [address] [place] [address] Instructions for Home/Discharge Instructions 10/25/22 1431 MR#: [id number] Acct: [id number] Name: TOYIN NUGENT ALAN Rep #:[id number] : 1960 61 From: Tio Son PCP: Dr. Toyin Franks, DO Status:REG [facility] Discharge Instructions Diet Discharge Diet: No restrictions Activity Discharge Activity: May Drive (when not taking narcotic pain medication.), May Shower (in 2 days.) and - (keep head elevated. ) May shower in (days): 2 May resume sexual activity in: No Restrictions Ice area for (Minutes): 5 (as needed for periorbital swelling.) Weight Bearing Status: Weight bearing as tolerated Keep extremity elevated above heart level: - (elevate head.) Dressing / Incision Call your doctor if your incision/area has: Continuous Slow Oozing, Sudden Increased Bleeding, Increased Pain/ Swelling, Increased Redness, Foul Smelling Discharge and Swelling at the incision site Call your doctor if you observe: Fever of 101 or Higher, Coldness, Increased Pain, Shortness of breath, Chest pain, Calf discomfort and Uncontrolled pain Suture Line Care: - (apply antibiotic ointment to left medial upper eyelid wounddaily.) Cleanse incision/area with: - (may get surgical wound left medial upper eyelid wet in the shower in 2 days.) Follow Up Care Please Follow Up With: Tio Crooks MD When: one week. call [phone] for appt. Test Results: Test results from this visit will be discussed in further detail at your follow-up appointment, if applicable. Discharge Plan Admission Primary Reason for Your Visit: excision lesion left medial upper eyelid Attending Provider: Tio Crooks Primary Care Provider: Toyin Franks Discharge Orders/Prescriptions Prescriptions: New clindamycin HCl [Cleocin HCl] 300 mg capsule 300 mg PO TID Qty: 9 0RF L.acidoph,saliva-B.bif-S.therm [Acidophilus Probiotic Blend] 175 mg capsule 1 cap PO DAILY Qty: 10 0RF oxycodone-acetaminophen [Percocet] 5-325 mg tablet 1 tab PO Q6H PRN (Reason: pain (scale score 7-10)) 3 Days Qty: 12 0RF Rx Instructions: 12 tabs (twelve) Continued multivitamin Tablet 1 tab PO DAILY mecobalamin (vitamin B12) [B12 Active] 1,000 mcg Tablet,Chewable 1,000 mcg PO DAILY Referrals / Follow Up: Toyin Franks DO [Primary Care Provider] - Disposition Disposition (needs filled in before D/C Order can be placed): Home, Self Care 10/25/22 1449<Electronically signed by Tio Crooks MD>Tio Crooks MD CC: Dr. 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 Personal history of skin cancer chronic Smoker chronic [facility] Work Phone: Summary Purpose Family History No Family History Records Found Relationship Condition Age at Onset Recorded Date/T zaki Not Specified Malignant neoplasm of colon Unknown Advance Directives No Advanced Directives Records Found Advance Directive Response Recorded Date/ Time Advance Directives No November 10 7:39am Living Will No January 02, 2022 10:44pm Power of Clin Application Specialist No December 10:44pm Advance Directive Response Recorded Date/ Time Advance Directives No November 10 7:39am Living Will No October 19, 2022 1 :22pm Power of Clin Application Specialist No October 19, 2022 1:22pm Chief Complaint and Reason for Visit Chief Complaint laceration Chief Complaint consult mole left ey e lid excision lesion lt medial upper eyelid with frozen Reason for Visit Neoplasm of skin of eyelid Personal history of skin cancer Smoker Additional Source Comments (unrecognized sect ion and content) No Status Records FoundNo Status Records Found INFORMATION SOURCE (unrecogn ized section and content) DATE CREATED AUTHOR 05/20/2021 [facility] DATE CREATED AUTHOR AUTHOR'S ORGANIZ ATION 02/22/2025 [facility] Goals (unrecognized section and content) Goals may be documented in a n alternate sectionGoals may be documented in an alternate section Care Teams (unrecognized sec tion and content) Team Status: Active Member Role Status Dates Dr. Toyin Franks DO Family Provider Active Dr. Toyin Franks DO Primary Care Provider Active Team Status: Inactive Member Role Status Dates Dr. Toyin Franks DO Primary [facility] Provider, [facility] Dr. Tio Crooks MD Attending Provider Active Team Status: Inactive Member Role Status Dates Dr. Toyin Franks DO Primary Care Provider Active Dr. Tio Crooks MD Attending Provider, Referring P blanca Active FOR RECORDS PERTAINING TO PATIENTS WHO ARE OR HAVE BEEN ENROLLED IN A CHEMICAL DEPENDENCY/SUBSTANCEABUSE PROGRAM, SOME INFORMATION MAY BE OMITTED. This clinical summary was aggregated from multiple sources. Caution should be exercised in using it in the provision of clinical care. This summary normalizes information from multiple sources, and as a consequence, information in this document may materially change the coding, format and clinical context of patient data. In addition, data may be omitted in some cases. CLINICAL DECISIONS SHOULD BE BASED ON THE PRIMARY CLINICAL RECORDS. [facility] [employer] [facility]. provides no warranty or guarantee of the accuracy or completeness of information in this document.
[2025-02-23 12:13] LABS: Hematocrit 43.3 % (40-54); Hemoglobin 14.1 g/dL (13.0-16.5); Immature Granulocytes Count 0.020 X10^3/uL (0.0-0.0); Mean Corp Hgb Conc 32.6 g/dL (32-36); Mean Corpuscular Volume 93.3 fL (80-94); Mean Platelet Vol. 12.6 fl (6.2-12.0); NRBC Flagged by Analyzer 0 % (0-5); Platelet Count 194 K/mm3 (150-450); RBC Distribution Width CV 13.3 % (11.6-14.6); RBC Distribution Width SD 45.7 fl (35.1-43.9); Red Blood Count 4.64 M/mm3 (4.6-6.2); White Blood Count 4.7 K/mm3 (4.4-11.0)
[2025-02-23 13:12] LABS: AST(SGOT) 24 U/L (<=37); Alanine Aminotransfer ALT/SGPT 21 U/L (<=46); Albumin, Serum 4.5 g/dL (3.4-4.8); Alkaline Phosphatase 80 U/L (40-129); Anion Gap 10 (5-15); BUN 11 mg/dL (4-19); BUN/Creat Ratio 13.9 RATIO (10-20); Calcium,Total 9.6 mg/dL (7.6-11.0); Carbon Dioxide 26.4 mmol/L (21.0-32.0); Chloride 102 mmol/L (98-108); Cholesterol 155 mg/dL (<=200); Globulin 2.6 g/dL (2.2-4.2); Glucose 94 mg/dL (70-99); Low Density Lipoprotein Calc. 94 mg/dL; PSA,Total - Annual Screen 0.86 ng/mL (0.02-4.00); Potassium 3.6 mmol/L (3.3-5.1); Triglycerides 69 mg/dL; Very Low Density Lipoprotein 14 mg/dL (5-40); cholesterol:hdl ratio screen 3.28
[2025-02-27 11:08] LABS: Testosterone, % Free 1.66 % (1.50-4.20); Testosterone, Free 4.76 ng/dL (5.00-21.00)
== END | disposition home or self-care (01) ==
LOC: BFHLAB 10:34
PROVIDERS: PCP Family Medicine; Visit Provider Family Medicine
DX: Z12.5 Encounter for screening for malignant neoplasm of prostate (principal); E78.5 Hyperlipidemia, unspecified; E29.1 Testicular hypofunction; Z51.81 Encounter for therapeutic drug level monitoring
CPT/HCPCS: 36415; 80053; 80061; 84153; 84402; 84403; 85025; G0103